=== PATIENT | male | born 1950 | race Caucasian/White ===

== ENCOUNTER → 2016-12-31 | Outpatient (CLI) | payer OTHER ==
[~2016-12-31] MED LIST: ACCUPRIL10 MG PO; FLEXERIL PO; GLUCOPHAGE500 MG PO; LIPITOR 20 MG T20 M1 PO; MECLIZINE 25 MG25 M1 PO; PERCOCET 5-3251 EACH PO; PREDNISONE 20 M20 MG PO; SYMBICORT160 MCG/4. INH; ZOCOR; ZOFRAN 4 MG ORAL4 M1 DIS
== END ==
LOC: RAD 10:18
DX: J44.9 Chronic obstructive pulmonary disease, unspecified (principal); Z72.0 Tobacco use

== ENCOUNTER 2017-04-09 05:20 | Observation (INO) | payer OTHER ==
[2017-04-09] VITALS (10 sets, daily range): BP systolic 107–156; BP diastolic 67–88
[~2017-04-09] VITALS: Ht 172.7 cm; Wt 85.3 kg
--- NOTE | ~2017-04-09 | O ---
[address] [address] OPERATIVE REPORT Name: PAPOCELINE LERMA Room #: 405-P [facility] Kenneth Desir#: [id number] Admission: 04/09/17 Attend Phys: Heladio Sepulveda MD Discharge: 04/10/17 Date of : 48 Report #: [id number] THIS REPORT FOR: //name// CC: Heladio Staufferhen Devon DATE OF SERVICE: 04/09/2017 SERVICE: Orthopedics. FACILITY: [facility]. SURGEON: Heladio Sepulveda MD DIRECTOR OF EARLY CHILDHOOD: None. PREOPERATIVE DIAGNOSES: 1. Left hip pain. 2. Left hip impingement. 3. Left hip labral tear. POSTOPERATIVE DIAGNOSES: 1. Left hip pain. 2. Left hip impingement. 3. Left hip labral tear. 4. Loose body, left hip. 5. Acetabular chondromalacia, left hip. OPERATION PERFORMED: 1. Left hip arthroscopy with extensive arthroscopic debridement, loose body removal and chondroplasty. 2. Left hip arthroscopic Cam osteochondroplasty. COMPLICATIONS: None. DRAINS: None. SPECIMENS: None. FINDINGS: 1. Intact femoral head articular cartilage throughout. 2. Large Cam bump with alpha angle maximum of 75 degrees. 3. Focal area of articular cartilage damage at the anterior lateral acetabular rim with intact acetabular cartilage otherwise. 4. Fully detached anterior labral tear, treated with debridement. 5. Small loose body posteriorly which was removed. [address] [address] OPERATIVE REPORT Name: CELINE BARROS [id number] Admission: 04/09/17 Attend Phys: Heladio Sepulveda MD Discharge: 04/10/17 Date of : 48 Report #: [id number] HISTORY AND INDICATIONS: The patient is a 67-year-old male with a history of persistent left hip pain that had an acute onset in July 2016 that has failed an extensive amount of conservative measures including activity modification, rest, extensive physical therapy, oral medications and intraarticular injection. Despite this effort at conservative measures, he continued to have significant lifestyle limiting pain. He received x-rays and MRI, which did not show any significant signs of osteoarthritis of the hip. He had well maintained joint space measured at greater than 3 mm at the perimeter of the acetabular rim, and elsewhere, he had 4 mm or greater articular cartilage/joint space. His Tonnis grade was 1. He had an MRI that showed a labral tear, but no significant osteoarthritis and so it was felt that he was clearly not a candidate for hip replacement. He did meet criteria for hip arthroscopy with an alpha angle of 74 degrees on the preoperative imaging and no evidence of osteoarthritis with persistent hip pain for approximately 9 months now. Despite his age, he can potentially benefit from arthroscopic treatment as demonstrated in a systematic review in the [employer], February 2017, on hip arthroscopy in the older adult. Risks, benefits, alternatives and indications for surgery were discussed with him in detail. Risks include but not limited to pain, bleeding, infection, injury to nerves or blood vessels, persistent pain despite surgical intervention, failure of any repairs, reconstruction, progression of any preexisting chondral injury, stiffness, need for further surgery including arthroplasty as well as complications related to anesthesia such as stroke, heart attack, pulmonary complications, thromboembolic disease and . Despite these risks, he wished to proceed. PROCEDURE IN DETAIL: After left lower extremity was correctly identified in preoperative holding area as the operative extremity, the patient underwent placement of a single shot regional nerve block by the anesthesia team. He was then taken to operating room and placed supine on operating table and general anesthesia was induced without complications. He was placed in traction boots and left hip femoral head and neck junction was mapped out. He was found to have a very large Cam lesion which was consistent with the preoperative imaging with alpha angle maximum of 75 degrees. The left leg was then prepped and draped in standard sterile fashion. Time-out procedure was performed. Prophylactic antibiotics have been administered at appropriate time and he was padded appropriately as well. Traction was applied to the left leg. Total traction time was approximately 25 minutes. A standard anterolateral viewing portal followed by mid anterior working portal was established and then transverse capsulotomy was performed. The shaver and scope were placed into the hip. There was normal articular [address] [address] OPERATIVE REPORT Name: CELINE BARROS Room #: 405-P [facility] Kenneth Desir#: [id number] Admission: 04/09/17 Attend Phys: Heladio Sepulveda MD Discharge: 04/10/17 Date of : 48 Report #: [id number] cartilage on the femoral head and in the majority of the acetabulum. There was some frayed grade 3 chondromalacia with a focal area of detached flap of cartilage. This was at approximately 9-10 o'clock position in reference to a right hip. The shaver was used to perform debridement and then the labrum which was fully detached and quite mobile and could be displaced into the hip was treated with debridement as well. I favored this over labral repair due to his history of smoking and some yellow striations noted in the labrum indicating it was probably not optimal tissue for repair. The shaver did perform the debridement quite readily indicating that they would not have tolerated repair well most likely. After the debridement was completed, the traction was let down and then attention was turned towards the Cam Under direct arthroscopic visualization using fluoroscopic assistance, a thorough Cam osteoplasty was performed, working from laterally to anteriorly. X-rays were taken and additional area was noted. The hip was flexed up and then the Cam resection was completed and the capsule was closed with a total of five #2 Vicryl sutures. The portal sites were closed with a deep followed by superficial 3-0 Monocryl. Sterile dressing was applied. The patient was awakened from anesthesia and taken to recovery room in stable condition. There were no complications and all counts were recorded as correct. <ELECTRONICALLY SIGNED> By: Heladio Sepulveda MD 04/10/17 [id number] Heladio Sepulveda MD /nt
[~2017-04-09 05:20] MED LIST changes: +BREO ELLIPTA 11 EACH IH; +NIFEDIPINE ER30 MG PO; +PROAIR HFA8.5 GM INH; +SPIRIVA INH
[2017-04-10 03:40] VITALS: BP 135/83
[2017-04-10 08:42] VITALS: BP 157/90
[2017-04-10 09:49] VITALS: BP 157/90
== END 2017-04-10 11:30 | disposition home or self-care (01) ==
LOC: TBA 05:20 → OR 05:20 → TBA 05:26 → 4N 10:53 → OR 10:53 → ENTRNSPT 04-10 11:19 → EDTRNSPTSTS 04-10 11:22 → 4N 04-10 11:30
DX: M25.552 Pain in left hip (principal); M25.852 Other specified joint disorders, left hip; S73.102A Unspecified sprain of left hip, initial encounter; X58.XXXA Exposure to other specified factors, initial encounter; Y93.89 Activity, other specified; Y92.89 Other specified places as the place of occurrence of the external cause; Y99.8 Other external cause status; M24.052 Loose body in left hip; M94.252 Chondromalacia, left hip